=== PATIENT | female | born 1960 | race Caucasian/White ===

== ENCOUNTER 2021-08-27 18:42 | Inpatient (IN) | payer SELFPAY ==
[~2021-08-27] VITALS: Ht 165.1 cm; Wt 68.0 kg
[~2021-08-27 18:42] MED LIST: AMIT25 PO; BUPR100ER PO; CITA20 PO; CLON.1 PO; CLON.2 PO; ESCI10 PO; HYDACE5 PO; IBUP800 PO; KETO10 PO; MEDICAL MARIJUANA; METF500 PO; NAPR500 PO; NIAC500ER PO; NITR100CA PO; OXYACE5T PO; OXYC10ER PO; OXYC5 PO; STOMUL PO; TRAM50 PO; TRAZ50 PO; TRAZODONE HCL; VENL75 PO
[2021-08-27 19:19] LABS: BASOPHILS ABSOLUTE AUTO 0.06 K/mm3 (0.00-0.23); BASOPHILS PERCENT AUTO 0 % (0-2); EOSINOPHILS PERCENT AUTO 0 % (0-6); Hemoglobin 14.4 g/dL (11.5-16.0); IMMATURE GRAN PERCENT AUTO 1 % (0-1); LYMPHOCYTES ABSOLUTE AUTO 0.77 K/mm3 (0.84-5.20); LYMPHOCYTES PERCENT AUTO 4 % (21-46); MONOCYTES ABSOLUTE AUTO 1.73 K/mm3 (0.16-1.47); MONOCYTES PERCENT AUTO 9 % (4-13); Mean Corpuscular HGB 30.4 pg (26.0-34.0); Mean Corpuscular HGB Conc 32.7 g/dL (31.5-36.5); Mean Corpuscular Volume 93 fL (80-100); Mean Platelet Volume 8.9 fL (9.1-12.4); NEUTROPHILS ABSOLUTE AUTO 17.58 K/mm3 (1.96-9.15); NEUTROPHILS PERCENT AUTO 87 % (41-73); Platelet Count 292 K/mm3 (150-400); RDW Coefficient Variation 13.6 % (11.7-14.2); RDW Standard Deviation 46.6 fL (35.1-46.3); Red Blood Cell Count 4.74 M/mm3 (3.80-5.20); White Blood Cell Count 20.24 K/mm3 (4.00-11.30)
[2021-08-27 19:29] LABS: Source, Urine Straight Cath
[2021-08-27 19:31] LABS: Appearance, Urine Clear (Clear); Bilirubin, Urine Neg (Neg); Blood, Urine 4+ (Neg); Color, Urine Yellow (P-Yellow); Glucose Qualitative, Urine 1+ (Neg); Ketones, Urine 2+ (Neg); Leukocyte Esterase, Urine Neg (Neg); Nitrite, Urine Neg (Neg); Protein, Urine 2+ (Neg); Specific Gravity, Urine 1.025 (1.003-1.022); Urobilinogen, Urine NORM (Normal)
[2021-08-27 19:42] LABS: U Amphetamine Screen Not Detected; U Barbituate Screen Not Detected; U Benzodiazapine Screen Not Detected; U Buprenorphine Screen Not Detected; U Cannabinoids Screen DETECTED; U Cocaine Screen Not Detected; U Methadone Screen Not Detected; U Methamphetamine Screen Not Detected; U Opiates Screen Not Detected; U Oxycodone Screen Not Detected; U Phencyclidine Screen Not Detected; U Propoxyphene Screen Not Detected
[2021-08-27 19:44] LABS: Hyaline Casts 0-2 /lpf (0-2)
[2021-08-27 19:45] LABS: Beta HCG, Quantitative, Serum 2 mIU/mL (0-3); Creatine Kinase MB 45.8 ng/mL (0.0-3.6); Ethanol (Alcohol), Blood, Med <3 mg/dL
[2021-08-27 19:45] LABS: Renal Tubular Epi Cast 0-2 /lpf (0)
[2021-08-27 19:46] LABS: Bacteria Few /hpf; Squamous Epithelial Cells Few /hpf (Few); White Blood Cells, Urine 0-2 /hpf (0-5)
[2021-08-27 20:08] LABS: Alanine Aminotransfer (ALT/SGP 107 U/L (12-78); Albumin, Blood 3.3 g/dL (3.4-5.0); Albumin/Globulin Ratio 0.7 (0.8-1.8); Alk Phos 106 U/L (50-136); Anion Gap 9 mmol/L (6-16); Aspartate Aminotrans (AST/SGOT 97 U/L (12-37); Bilirubin, Total 0.5 mg/dL (0.1-1.0); Blood Urea Nitrogen 15 mg/dL (8-24); Bun/Creatinine Ratio 24.2 (12.0-20.0); CO2, Blood 19 mmol/L (21-32); CPK Creatine Kinase 1421 U/L (26-193); Calcium, Blood 9.1 mg/dL (8.5-10.1); Chloride, Blood 113 mmol/L (98-108); Creatine Kinase MB Index 3.2 (0.0-4.0); Creatinine, Blood 0.62 mg/dL (0.40-1.00); Globulin, Blood 4.7 g/dL (2.2-4.0); Glomerular Filtration Rate 102 (60-); Glucose, Blood 121 mg/dL (70-99); Potassium, Blood 4.3 mmol/L (3.5-5.5); Sodium, Blood 141 mmol/L (136-145)
[2021-08-27 20:11] LABS: International Normalized Ratio 1.04; Prothrombin Time Results 10.9 Sec (9.7-11.5)
[2021-08-28 04:18] LABS: BASOPHILS ABSOLUTE AUTO 0.04 K/mm3 (0.00-0.23); BASOPHILS PERCENT AUTO 0 % (0-2); EOSINOPHILS ABSOLUTE AUTO 0.01 K/mm3 (0.00-0.68); EOSINOPHILS PERCENT AUTO 0 % (0-6); Hematocrit 42.7 % (33.0-51.0); Hemoglobin 13.8 g/dL (11.5-16.0); IMMATURE GRAN ABSOLUTE AUTO 0.04 K/mm3 (0.00-0.10); IMMATURE GRAN PERCENT AUTO 0 % (0-1); LYMPHOCYTES ABSOLUTE AUTO 2.16 K/mm3 (0.84-5.20); LYMPHOCYTES PERCENT AUTO 16 % (21-46); MONOCYTES ABSOLUTE AUTO 1.19 K/mm3 (0.16-1.47); MONOCYTES PERCENT AUTO 9 % (4-13); Mean Corpuscular HGB 30.5 pg (26.0-34.0); Mean Corpuscular HGB Conc 32.3 g/dL (31.5-36.5); Mean Corpuscular Volume 94 fL (80-100); Mean Platelet Volume 8.8 fL (9.1-12.4); NEUTROPHILS ABSOLUTE AUTO 9.89 K/mm3 (1.96-9.15); NEUTROPHILS PERCENT AUTO 74 % (41-73); Platelet Count 224 K/mm3 (150-400); RDW Coefficient Variation 13.8 % (11.7-14.2); RDW Standard Deviation 48.3 fL (35.1-46.3); Red Blood Cell Count 4.53 M/mm3 (3.80-5.20); White Blood Cell Count 13.33 K/mm3 (4.00-11.30)
[2021-08-28 04:37] LABS: Albumin/Globulin Ratio 0.7 (0.8-1.8); Bilirubin, Total 0.6 mg/dL (0.1-1.0); Bun/Creatinine Ratio 24.1 (12.0-20.0); Calcium, Blood 8.2 mg/dL (8.5-10.1); Creatinine, Blood 0.58 mg/dL (0.40-1.00); Globulin, Blood 4.1 g/dL (2.2-4.0); Potassium, Blood 4.2 mmol/L (3.5-5.5); Total Protein, Blood 7.1 g/dL (6.4-8.2)
--- NOTE | 2021-08-28 06:16 | NUR ---
Overnight pt in restraints (soft wrist bilat), not following commands, VSS, room air to 2L intermittent, IV dilaudid appears effective, will monitor ABDOUL Obando
--- NOTE | 2021-08-28 11:56 | NUR ---
Am note Pt resting in bed, wakes to verbal stimuli, oriented to name only, unable to answer questions appropriately. Pt states shes at home in bed, its Apr 2021. Pt nonsensical when asked what happened to bring her in, pt states she fell at home, point to corner of room, states algerbra made her fall. Pt aggitated at time, pulling at restraints, and melecio vest, removing multiple times, PIV removed. Ls coarse t/o dim bases, spo2 >90% on ra, titrated from 1L o2 via nc this am. Tele sr/st, bp soft but stable. Pt abd soft, tender on plapation. Brusing noted t/o body, including pt face. Other vss. Will continue to monitor.
--- NOTE | 2021-08-28 18:38 | NUR ---
Shift Summary Pt appears to be sleeping intermittently t/o shift. Alert at times, calm and cooperative late morning and afternoon. Speech is nonsensicle at times. Pt able to get out of restraints multiple times pulling out piv's and attempts to get out of bed, nonviolent bilateral wrist tat placed this afternoon. Pt report pain with movement, denies chest pain, sob, nausea and dizziness when asked. Trop elevated, ekg and echo completed this afternoon, notified MD. Finnegan. Pt friend Ziggy at bedside this afternoon, states this is her baseline for at least the last month or so. Dr Kim at bedside this evening, discuss possible st elevation, plans to manage medically at this time. Will continue to monitor.
[2021-08-29 04:38] LABS: BASOPHILS ABSOLUTE AUTO 0.04 K/mm3 (0.00-0.23); BASOPHILS PERCENT AUTO 0 % (0-2); EOSINOPHILS ABSOLUTE AUTO 0.02 K/mm3 (0.00-0.68); EOSINOPHILS PERCENT AUTO 0 % (0-6); Hematocrit 37.4 % (33.0-51.0); IMMATURE GRAN ABSOLUTE AUTO 0.03 K/mm3 (0.00-0.10); IMMATURE GRAN PERCENT AUTO 0 % (0-1); LYMPHOCYTES ABSOLUTE AUTO 2.39 K/mm3 (0.84-5.20); LYMPHOCYTES PERCENT AUTO 22 % (21-46); MONOCYTES ABSOLUTE AUTO 0.86 K/mm3 (0.16-1.47); MONOCYTES PERCENT AUTO 8 % (4-13); Mean Corpuscular HGB 30.2 pg (26.0-34.0); Mean Corpuscular HGB Conc 32.1 g/dL (31.5-36.5); Mean Corpuscular Volume 94 fL (80-100); Mean Platelet Volume 9.4 fL (9.1-12.4); NEUTROPHILS ABSOLUTE AUTO 7.33 K/mm3 (1.96-9.15); NEUTROPHILS PERCENT AUTO 69 % (41-73); Platelet Count 203 K/mm3 (150-400); RDW Coefficient Variation 14.2 % (11.7-14.2); RDW Standard Deviation 49.3 fL (35.1-46.3); Red Blood Cell Count 3.98 M/mm3 (3.80-5.20); White Blood Cell Count 10.67 K/mm3 (4.00-11.30)
[2021-08-29 05:13] LABS: Albumin, Blood 2.7 g/dL (3.4-5.0); Albumin/Globulin Ratio 0.7 (0.8-1.8); Bilirubin, Total 1.2 mg/dL (0.1-1.0); Bun/Creatinine Ratio 30.7 (12.0-20.0); Calcium, Blood 8.3 mg/dL (8.5-10.1); Creatinine, Blood 0.59 mg/dL (0.40-1.00); Globulin, Blood 3.9 g/dL (2.2-4.0); Potassium, Blood 3.9 mmol/L (3.5-5.5); Total Protein, Blood 6.6 g/dL (6.4-8.2)
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
--- NOTE | 2021-08-29 10:03 | NUR ---
AM NOTE PATIENT IS PLEASANT, COOPERATIVE, BUT MINIMALLY ALERT AND ORIENTED, CAN NAME DATE, TIME, EVENT, BUT IS CONFUSED FOR THE MOST PART. SPEAKS IN TANGENT AT TIMES. TELE NSR 90S PACED, SPO2>95% ON RA, VSS. PATIENT HAS A JAMIE OVER HER CHEST, NO S/SX OF BRUISING, TENDERNESS, SCRATCHES, ETC. PLAN FOR MRI TODAY. PATIENT DENIES CP/PRESSURE, SOB, NAUSEA, NUMBNESS/TINGLING AT THIS TIME.
[2021-08-29 12:16] LABS: Creatine Kinase MB 17.1 ng/mL (0.0-3.6); Creatine Kinase MB Index 0.8 (0.0-4.0)
--- NOTE | 2021-08-29 13:43 | NUR ---
Plans for MRI discussed this am, MRI screening form completed with pt and daughter Gisella over the phone. New orders per Dr Kim for Ativan 1mg iv once for MRI, administered per orders, [facility] emg technician called pt unable to stay still, notified Dr Brandon of previous adminstration and pt behaviour, new order for ativan iv 1mg now. Administered per orders, pt still unable to keep still for MRI. Notified Dr Krishnan and Dr Kim. Will continue to monitor.
--- NOTE | 2021-08-29 18:56 | NUR ---
SHIFT SUMMARY PATIENT REMAINED COOPERATIVE WITH CARE AND PLEASANT. PATIENT DID STAY CONFUSED WITH TANGENTAL THOUGHT PROCESS. DETECTIVES AND DAUGHTER AT BEDISDE TODAY. PATIENT CAME BACK FROM HARMONIC ANALYST WITH A RIGHT RADIAL ACCESS. THE ACCESS SITE IS INTCATT, TR BAND PATENT, NO BRUISING, NO SWELLING, NO REDNESS, NO HEMATOMA PRESENT. TELE SR 90S. SPO2>95% RA. VSS. WILL CONTINUE TO MONITOR UNTIL REPORT GIVEN TO THE ONCOMING SHIFT.
--- NOTE | 2021-08-29 19:49 | NUR ---
I have reviewed the nursing students documentation and am in agreement. Pt alert, oriented to person and place, knows year. Pt cooperative and pleasant with care, nonsensical at times. Restraints removed this am. Pt reports all over pain. Pt denies chest pain, sob, nausea, dizziness and numb/tingling. Attempted mri, see previosu note, no additional plans for imaging noted. Pt to lab technician this afternoon, right radial site, tr band in place, slight shadow noted and dried blood noted under tr band; no active bleeding or hematoma noted. Vss. No other acute changes noted. Report given to oncoming rn.
[2021-08-30 07:51] LABS: Hematocrit 35.6 % (33.0-51.0); Hemoglobin 11.4 g/dL (11.5-16.0); Mean Corpuscular HGB 30.5 pg (26.0-34.0); Mean Corpuscular Volume 95 fL (80-100); Platelet Count 214 K/mm3 (150-400); RDW Coefficient Variation 14.1 % (11.7-14.2); RDW Standard Deviation 49.1 fL (35.1-46.3); Red Blood Cell Count 3.74 M/mm3 (3.80-5.20); White Blood Cell Count 7.26 K/mm3 (4.00-11.30)
[2021-08-30 08:02] LABS: Anion Gap 8 mmol/L (6-16); Blood Urea Nitrogen 18 mg/dL (8-24); CHOL/HDL RATIO 4.6; CO2, Blood 22 mmol/L (21-32); Chloride, Blood 116 mmol/L (98-108); Cholesterol 116 mg/dL (50-200); Creatinine, Blood 0.53 mg/dL (0.40-1.00); Glomerular Filtration Rate 106 (60-); Glucose, Blood 66 mg/dL (70-99); HDL Cholesterol 25 mg/dL (>39); LDL/HDL RATIO 2.8; Low Density Lipoprotein Chol 70 mg/dL (0-110); Potassium, Blood 3.8 mmol/L (3.5-5.5); Sodium, Blood 146 mmol/L (136-145); Triglycerides 106 mg/dL (30-160); Very Low Density Lipoprot Chol 21 mg/dL (6-32)
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
--- NOTE | 2021-08-30 15:08 | NUR ---
REPORT TO MEDICAL RN THIS RN GAVE REPORT TO SAPPHIRE RN ON MEDICAL FLOOR. PATIENT BELONGINGS ALL GATHERED AND WITH PATIENT. PATIENT IN NO DISTRESS AND IS AWARE OF MOVING ROOM TO MEDICAL FLOOR. THERE HAVE BEEN NO ACUTE CHANGES THIS SHIFT. PER PHYSICAL THERAPY PATIENT CAN BE INDEPENDENT IN THE ROOM.
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
[2021-08-31 08:44] LABS: Bun/Creatinine Ratio 29.1 (12.0-20.0); Creatinine, Blood 0.52 mg/dL (0.40-1.00); Potassium, Blood 3.4 mmol/L (3.5-5.5)
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
--- NOTE | 2021-08-31 16:36 | NUR ---
DR. REYES IS HERE NOW ASSESSING THE PATIENT. DISCHARGE PLANNING IS UNDERWAY BUT PSYCH ASSESSMENT NEEDS TO BE COMPLETED PRIOR TO DC. TODAY, THE PATIENT WAS IN A GOOD MOOD, ALTHOUGH PARANOID AND TALKING ABOUT NON-REALITY IDEAS. HER SKIN HAS SCATTERED BRUISING, WHICH SHE SAYS IS FROM FALLING DOWN. SHE IS UP INDEPENDENTLY, PT ASSESSED HER SUCH TODAY. HER MAIN COMPLAINT IS HER KNEE BEING PAINFUL WHEN SHE GETS UP TO MOVE AROUND.
--- NOTE | 2021-08-31 17:46 | NUR ---
PATIENTS 2100 DOSE OF SEROQUEL WAS RAISED TO 100MG AFTER THE PSYCH PROVIDER MET WITH HER TODAY.
--- NOTE | 2021-09-01 04:33 | NUR ---
PT HAVING LESS PARANOID CONVERSATION AT START OF SHIFT. SLEPT THROUGH THE NIGHT, VSS.
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
--- NOTE | 2021-09-01 16:14 | NUR ---
DR. MANSFIELD WAS HERE TO DO A FOLLOW UP FROM THE PSYCH EVAL HE COMPLETED YESTERDAY. HE BELIEVES SHE IS IMPROVING. HE WILL CHECK ON HER NEXT WEEK. THERE ARE NO MEDICAL CONCERNS TO REPORT.
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
--- NOTE | 2021-09-02 04:25 | NUR ---
SHIFT SUMMARY 61 YR F ADMITTED ON 08/27/21. FULL CODE. NO ACUTE CHANGES THIS SHIFT. PT IS PLEASANT AND COOPERATIVE BUT ALSO SEEMS CONFUSED. SHE WAS FRIENDLY AND CHATTED ALOT BUT ALOT OF THE THINGS SHE SAID DID NOT MAKE SENSE. SHE WATCHED TV FOR SEVERAL HOURS THEN SLEPT FOR THE REST OF THE NIGHT.
--- NOTE | 2021-09-02 15:55 | NUR ---
SHIFT SUMMARY PT ALERT, CONFUSED AT TIMES. PT IS INDEPENDENT IN BED, STAND BY TO THE BATHROOM. PT IS CONTINENT. PT IS AWAITING PLACEMENT, SHE IS SAID TO BE PARANOID, DELUSIONAL, AND EPISODES OF JOEY. SHE HAS BEEN PLEASANT TODAY, OBEYS COMMANDS AND FOLLOWS DIRECTIONS. SHE WAS TRANSFERRED FROM THE ICU FOR RHABDOMYOLYSIS. SHE HAS BRUSING T/O THE BODY. SHE DOES HAVE A HISTORY OF FALLS. SHE IS A FULL CODE. SHE HAS BEEN IN BED, WATCHING TELEVISION ALL DAY AND PLAYING WORD SEARCH.
--- NOTE | 2021-09-02 16:35 | NUR ---
I AM IN AGGREEMENT WITH THE CHARTING BY COMMUNICATION LECTURER BRENDAN.
--- NOTE | 2021-09-03 02:24 | NUR ---
SHIFT SUMMARY 61 YR F ADMITTED ON 08/27/21. FULL CODE. PT SEEMS MUCH MORE LUCID TODAY THAN YESTERDAY. HER SPEECH MAKES SENSE AND IS APPROPRIATE IN NATURE. SHE IS PLEASANT AND COOPERATIVE AND WATCHED TV FOR A FEW HOURS THEN WENT TO BED AND S;EPT FOR THE REST OF THE NIGHT.
--- NOTE | 2021-09-03 15:05 | NUR ---
I HAVE READ AND AGREE THE DOCUMENTATION FROM BRENDAN STUDENT NURSE AND AM IN AGREEMENT WITH HER CHARTING.
--- NOTE | 2021-09-03 17:10 | NUR ---
SHIFT SUMMARY PT IS A FULL CODE AND INDEPENDENT, SHE TAKES MEDS WHOLE WITH WATER. THERE ARE NO ACUTE CHANGES AT THIS TIME. PT HAS BEEN COOPERATIVE AND FOLLOWS DIRECTIONS IN A PLEASANT MANNER. SHE HAS BEEN IN BED AND WATCHING TELEVISION ALL DAY. HER PARTNER VISITED HER TODAY FOR A SHORT TIME. SHE HAS A POWER GLIDE IN HER RIGHT ARM. SHE HAS EXTENSIVE MENTAL HEALTH HISTORY. WILL CONTINUE TO MONITOR AND ASSESS UNTIL NOC SHIFT ARRIVES.
--- NOTE | 2021-09-04 05:01 | NUR ---
SHIFT SUMMARY NOC: PT HAS BEEN COOPERATIVE WITH CARE, INDEPENDENT IN ROOM. PT SLEPT ALL NIGHT. NO ADVERSE EVENTS.
[2021-09-04] MEDS ORDERED: ASPI81CH PO (14:42)
[2021-09-04] MEDS ORDERED: ATOR20 PO (14:43)
[2021-09-04] MEDS ORDERED: LOSA25 PO (14:44)
[2021-09-04] MEDS ORDERED: METO25ER PO (14:44)
--- NOTE | 2021-09-04 16:25 | NUR ---
DC SUMMARY PT AxOx4. PLEASANT AND COOPERATIVE WITH CARE. PT DISPLAYS SOME PARANOID THOUGHTS AND NONSENSICAL SPEECH. PT DISCHARGING TO HOME TODAY WITH SIGNIFICANT OTHER. PT AND SIGNIFICANT OTHER GIVEN DC INSTRUCTIONS INCLUDING DC MEDICATIONS, FOLLOW UP APPOINTMENTS AND PATIENT EDUCATION. PT AND S/O VERBALIZE UNDERSTANDING AND DENY ANY FURTHER QUESTIONS AT THIS TIME. VITALS REVIEWED. PSYCH DR YU TODAY, CLEARED FOR DISCHARGE. PT SAFELY ESCORTED OUT VIA WC WITH METAL ROOM DENTAL TECHNICIAN AND S/O.
== END 2021-09-04 16:16 | DRG 964 ==
LOC: ER 18:42 → MEDS 23:29 → PCU 23:29 → MEDS 08-30 15:23 → ENPENDDIS 09-04 15:32 → MEDS 09-04 16:16
PROVIDERS: Emergency Medicine; Internal Medicine Cardiovascular Disease; Student in an Organized Health Care Education/Training Program; ADMIT Internal Medicine
PROC: 4A023N7 Measurement of Cardiac Sampling and Pressure, Left Heart, Percutaneous Approach (ICD-10-PCS; principal; 2021-08-29)
PROC: B2151ZZ Fluoroscopy of Left Heart using Low Osmolar Contrast (ICD-10-PCS; 2021-08-29)
DX: S06.9X0A Unspecified intracranial injury without loss of consciousness, initial encounter (principal); I51.81 Takotsubo syndrome; T79.6XXA Traumatic ischemia of muscle, initial encounter; M84.48XA Pathological fracture, other site, initial encounter for fracture; R40.2342 Coma scale, best motor response, flexion withdrawal, at arrival to emergency department; G89.29 Other chronic pain; M54.9 Dorsalgia, unspecified; R40.2142 Coma scale, eyes open, spontaneous, at arrival to emergency department; R40.2232 Coma scale, best verbal response, inappropriate words, at arrival to emergency department; M79.7 Fibromyalgia; M54.2 Cervicalgia; F32.A Depression, unspecified; I10 Essential (primary) hypertension; E78.5 Hyperlipidemia, unspecified; R73.9 Hyperglycemia, unspecified; E86.0 Dehydration; E78.6 Lipoprotein deficiency; F25.0 Schizoaffective disorder, bipolar type; Z88.0 Allergy status to penicillin; W18.39XA Other fall on same level, initial encounter
CPT/HCPCS: 36415; 70450; 71260; 72125; 74177; 80048; 80053; 80061; 81001; 82140; 82550; 82553; 82947; 83690; 83880; 84443; 84484; 84702; 85025; 85027; 85610; 93005; 93010; 93306; 93458; 96365-59; 96366; 96372-59; 96375-59; 96376-59; 97110; 97116; 97129; 97162; 97165; 97530; 97535; 99285-25; A9270; C1751; C1769; C1894; C8929; G0480; J1170; J1644; J1650; J1790; J2060; J2405; J3411; J3475; J7030; J7040; J7042; L0160; Q9957; Q9967

== ENCOUNTER 2022-06-05 14:48 | Observation (INO) | payer MEDICARE ==
[~2022-06-05] VITALS: Ht 162.6 cm; Wt 68.0 kg
[~2022-06-05 14:48] MED LIST changes: +ASPI81CH PO; +ATOR20 PO; +LOSA25 PO; +METO25ER PO
[2022-06-05 16:17] LABS: BASOPHILS ABSOLUTE AUTO 0.06 K/mm3 (0.00-0.23); BASOPHILS PERCENT AUTO 1 % (0-2); EOSINOPHILS ABSOLUTE AUTO 0.04 K/mm3 (0.00-0.68); EOSINOPHILS PERCENT AUTO 1 % (0-6); Hemoglobin 14.6 g/dL (11.5-16.0); IMMATURE GRAN ABSOLUTE AUTO 0.02 K/mm3 (0.00-0.10); IMMATURE GRAN PERCENT AUTO 0 % (0-1); LYMPHOCYTES ABSOLUTE AUTO 1.35 K/mm3 (0.84-5.20); LYMPHOCYTES PERCENT AUTO 19 % (21-46); MONOCYTES ABSOLUTE AUTO 0.62 K/mm3 (0.16-1.47); MONOCYTES PERCENT AUTO 9 % (4-13); Mean Corpuscular HGB 31.3 pg (26.0-34.0); Mean Corpuscular HGB Conc 33.2 g/dL (31.5-36.5); Mean Corpuscular Volume 94 fL (80-100); Mean Platelet Volume 9.1 fL (9.1-12.4); NEUTROPHILS ABSOLUTE AUTO 5.14 K/mm3 (1.96-9.15); NEUTROPHILS PERCENT AUTO 71 % (41-73); Platelet Count 316 K/mm3 (150-400); RDW Coefficient Variation 14.4 % (11.7-14.2); RDW Standard Deviation 49.5 fL (35.1-46.3); Red Blood Cell Count 4.66 M/mm3 (3.80-5.20); White Blood Cell Count 7.23 K/mm3 (4.00-11.30)
[2022-06-05 16:39] LABS: Ethanol (Alcohol), Blood, Med 3 mg/dL; Salicylate 3.9 mg/dL (2.8-20.0)
[2022-06-05 16:42] LABS: Acetaminophen, Random <2.0 ug/mL (10.0-30.0); Alanine Aminotransfer (ALT/SGP 66 U/L (12-78); Albumin, Blood 3.7 g/dL (3.4-5.0); Albumin/Globulin Ratio 0.8 (0.8-1.8); Alk Phos 77 U/L (50-136); Anion Gap 2 mmol/L (6-16); Aspartate Aminotrans (AST/SGOT 44 U/L (12-37); Bilirubin, Total 0.3 mg/dL (0.1-1.0); Blood Urea Nitrogen 12 mg/dL (8-24); Bun/Creatinine Ratio 24.1 (12.0-20.0); CO2, Blood 25 mmol/L (21-32); Calcium, Blood 8.9 mg/dL (8.5-10.1); Chloride, Blood 111 mmol/L (98-108); Globulin, Blood 4.7 g/dL (2.2-4.0); Glomerular Filtration Rate 107 (60-); Glucose, Blood 122 mg/dL (70-99); Potassium, Blood 4.4 mmol/L (3.5-5.5); Sodium, Blood 138 mmol/L (136-145); Total Protein, Blood 8.4 g/dL (6.4-8.2)
[2022-06-05 18:28] LABS: Source, Urine Clean Catch
[2022-06-05 18:32] LABS: Influenza A, PCR NEGATIVE (NEGATIVE); Influenza B, PCR NEGATIVE (NEGATIVE); Resp Syncytial Virus, PCR NEGATIVE (NEGATIVE); SARS-Cov-2 (COVID-19) PCR, MMC NEGATIVE (NEGATIVE)
[2022-06-05 18:35] LABS: Appearance, Urine Clear (Clear); Bilirubin, Urine Neg (Neg); Blood, Urine Neg (Neg); Color, Urine Yellow (P-Yellow); Glucose Qualitative, Urine Neg (Neg); Ketones, Urine 1+ (Neg); Leukocyte Esterase, Urine Neg (Neg); Nitrite, Urine Neg (Neg); Protein, Urine 1+ (Neg); Urobilinogen, Urine 1+ (Normal)
[2022-06-05 18:45] LABS: U Amphetamine Screen Not Detected; U Barbituate Screen Not Detected; U Benzodiazapine Screen Not Detected; U Buprenorphine Screen Not Detected; U Cannabinoids Screen DETECTED; U Cocaine Screen Not Detected; U Methadone Screen Not Detected; U Methamphetamine Screen Not Detected; U Opiates Screen Not Detected; U Oxycodone Screen Not Detected; U Phencyclidine Screen Not Detected; U Propoxyphene Screen Not Detected
== END 2022-06-06 21:20 ==
LOC: ER 14:48 → EOR 14:49
PROVIDERS: Emergency Medicine; Student in an Organized Health Care Education/Training Program; ADMIT Student in an Organized Health Care Education/Training Program
DX: F25.0 Schizoaffective disorder, bipolar type (principal); I10 Essential (primary) hypertension; E78.5 Hyperlipidemia, unspecified; Z20.822 Contact with and (suspected) exposure to COVID-19; F41.9 Anxiety disorder, unspecified
CPT/HCPCS: 0241U; 80053; 81025; 85025; 93005; 93010; 99285-25; A9270; G0378; G0480; Q3014

== ENCOUNTER 2022-06-22 09:53 | Inpatient (IN) | payer MEDICARE, MEDICAID ==
[~2022-06-22] VITALS: Ht 170.2 cm; Wt 70.6 kg
[2022-06-22 10:33] LABS: BASOPHILS ABSOLUTE AUTO 0.04 K/mm3 (0.00-0.23); BASOPHILS PERCENT AUTO 0 % (0-2); EOSINOPHILS ABSOLUTE AUTO 0.02 K/mm3 (0.00-0.68); EOSINOPHILS PERCENT AUTO 0 % (0-6); Hematocrit 42.7 % (33.0-51.0); Hemoglobin 14.1 g/dL (11.5-16.0); IMMATURE GRAN ABSOLUTE AUTO 0.29 K/mm3 (0.00-0.10); IMMATURE GRAN PERCENT AUTO 2 % (0-1); LYMPHOCYTES ABSOLUTE AUTO 0.78 K/mm3 (0.84-5.20); LYMPHOCYTES PERCENT AUTO 4 % (21-46); MONOCYTES ABSOLUTE AUTO 2.17 K/mm3 (0.16-1.47); MONOCYTES PERCENT AUTO 11 % (4-13); Mean Corpuscular HGB 30.6 pg (26.0-34.0); Mean Corpuscular Volume 93 fL (80-100); Mean Platelet Volume 9.9 fL (9.1-12.4); NEUTROPHILS ABSOLUTE AUTO 16.34 K/mm3 (1.96-9.15); NEUTROPHILS PERCENT AUTO 83 % (41-73); Platelet Count 290 K/mm3 (150-400); RDW Coefficient Variation 14.1 % (11.7-14.2); RDW Standard Deviation 48.1 fL (35.1-46.3); Red Blood Cell Count 4.61 M/mm3 (3.80-5.20); White Blood Cell Count 19.64 K/mm3 (4.00-11.30)
[2022-06-22 11:05] LABS: Albumin, Blood 3.2 g/dL (3.4-5.0); Albumin/Globulin Ratio 0.6 (0.8-1.8); Bilirubin, Total 0.3 mg/dL (0.1-1.0); Bun/Creatinine Ratio 16.7 (12.0-20.0); Calcium, Blood 8.4 mg/dL (8.5-10.1); Creatinine, Blood 0.66 mg/dL (0.40-1.00); Globulin, Blood 5.1 g/dL (2.2-4.0); Potassium, Blood 3.6 mmol/L (3.5-5.5); Total Protein, Blood 8.3 g/dL (6.4-8.2)
[2022-06-22 12:02] LABS: Source, Urine Straight Cath
[2022-06-22 12:21] LABS: Appearance, Urine Clear (Clear); Bilirubin, Urine Neg (Neg); Blood, Urine 4+ (Neg); Color, Urine Yellow (P-Yellow); Glucose Qualitative, Urine Neg (Neg); Ketones, Urine Neg (Neg); Leukocyte Esterase, Urine Neg (Neg); Nitrite, Urine Neg (Neg); Protein, Urine Neg (Neg); Specific Gravity, Urine 1.015 (1.003-1.022); Urobilinogen, Urine NORM (Normal)
[2022-06-22 12:37] LABS: White Blood Cells, Urine Not Seen /hpf (0-5)
[2022-06-22 12:38] LABS: Bacteria Not Seen /hpf; Squamous Epithelial Cells Few /hpf (Few)
[2022-06-22 12:52] LABS: U Amphetamine Screen Not Detected; U Barbituate Screen Not Detected; U Benzodiazapine Screen Not Detected; U Buprenorphine Screen Not Detected; U Cannabinoids Screen DETECTED; U Cocaine Screen Not Detected; U Methadone Screen Not Detected; U Methamphetamine Screen Not Detected; U Opiates Screen Not Detected; U Oxycodone Screen Not Detected; U Phencyclidine Screen Not Detected; U Propoxyphene Screen Not Detected
[2022-06-22 14:09] LABS: RBC Count, CSF 0 /mm3 (0-0); WBC Count, CSF 1 /mm3 (0-5)
[2022-06-22 14:20] LABS: RBC Count, CSF 0 /mm3 (0-0); WBC Count, CSF 2 /mm3 (0-5)
[2022-06-22 14:44] LABS: Glucose, CSF 109 mg/dL (40-70)
[2022-06-22 14:57] LABS: Appearance, CSF Clear (Clear); Color, CSF No Color (No Color)
[2022-06-22 15:00] LABS: Appearance, CSF Clear (Clear); Color, CSF No Color (No Color)
[2022-06-22 16:09] LABS: Escherichia Coli K1 Not Detected (NOT DETECT); Haemophilus Influenza Not Detected (NOT DETECT)
[2022-06-22 16:10] LABS: Cryptococcus Neoformans/Gattii Not Detected (NOT DETECT); Enterovirus Not Detected (NOT DETECT); Herpes Simplex Virus 1 Not Detected (NOT DETECT); Herpes Simplex Virus 2 Not Detected (NOT DETECT); Human Herpesvirus 6 Not Detected (NOT DETECT); Human Parechovirus Not Detected (NOT DETECT); Listeria Monocytogenes Not Detected (NOT DETECT); Neisseria Meningitidis Not Detected (NOT DETECT); Streptococcus Agalactiae Not Detected (NOT DETECT); Streptococcus Pneumoniae Not Detected (NOT DETECT); Varicella Zoster Virus Not Detected (NOT DETECT)
[2022-06-23 05:53] LABS: BASOPHILS ABSOLUTE AUTO 0.02 K/mm3 (0.00-0.23); BASOPHILS PERCENT AUTO 0 % (0-2); EOSINOPHILS PERCENT AUTO 0 % (0-6); Hematocrit 40.1 % (33.0-51.0); Hemoglobin 13.3 g/dL (11.5-16.0); IMMATURE GRAN ABSOLUTE AUTO 0.05 K/mm3 (0.00-0.10); IMMATURE GRAN PERCENT AUTO 0 % (0-1); LYMPHOCYTES PERCENT AUTO 12 % (21-46); MONOCYTES ABSOLUTE AUTO 0.94 K/mm3 (0.16-1.47); MONOCYTES PERCENT AUTO 7 % (4-13); Mean Corpuscular HGB 30.6 pg (26.0-34.0); Mean Corpuscular HGB Conc 33.2 g/dL (31.5-36.5); Mean Corpuscular Volume 92 fL (80-100); Mean Platelet Volume 9.9 fL (9.1-12.4); NEUTROPHILS ABSOLUTE AUTO 10.57 K/mm3 (1.96-9.15); NEUTROPHILS PERCENT AUTO 81 % (41-73); Platelet Count 261 K/mm3 (150-400); RDW Coefficient Variation 14.1 % (11.7-14.2); RDW Standard Deviation 47.8 fL (35.1-46.3); Red Blood Cell Count 4.34 M/mm3 (3.80-5.20); White Blood Cell Count 13.08 K/mm3 (4.00-11.30)
[2022-06-23 06:33] LABS: Magnesium, Blood 2.4 mg/dL (1.6-2.4)
[2022-06-23 06:34] LABS: Albumin/Globulin Ratio 0.7 (0.8-1.8); Bilirubin, Total 0.9 mg/dL (0.1-1.0); Calcium, Blood 8.1 mg/dL (8.5-10.1); Creatinine, Blood 0.52 mg/dL (0.40-1.00); Globulin, Blood 4.6 g/dL (2.2-4.0); Potassium, Blood 4.5 mmol/L (3.5-5.5); Total Protein, Blood 7.6 g/dL (6.4-8.2)
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
--- NOTE | 2022-06-23 18:41 | NUR ---
END OF SHIFT SUMMARY: PATIENT REPORTED PAIN INTIALLY THIS MORNING, BUT DENIED IT AFTER SLEEPING. PATIENT DEMONSTRATED IMPROVED NEUROLOGICAL STATUS. BY THE END OF THE SHIFT, PATIENT WAS ABLE TO ANSWER QUESTIONS APPROPRIATELY AND FEED HERSELF. PATIENT REFUSED TO GET OUT OF THE BED THIS AFTERNOON AND EVENING. PATIENT IS STRONG ACROSS EXTREMITIES. PATIENT ABLE TO LIFT HIPS AND REPOSITION INDEPENDENTLY IN THE BED. PATIENT DENIES USE OF ASSISTIVE DEVICE AT HOME FOR AMBULATION. PATIENT IS CONTINENT. PATIENT HAS VERY DARK YELLOW URINE. PATIENT HAS A NON PRODUCTIVE COUGH. PATIENT REPORTS THAT SHE SMOKES MARIJUANA AT HOME FOR PAIN CONTROL. PATIENT HAS ROUND BRUISES ON HER BACK, OVAL BRUISES THAT CIRCUMVENT HER FOREARMS AND UPPER ARMS. PATIENT HAS BRUISES AND SOME OPENINGS ON HER LEGS/ANKLES. PATIENT HAS BRUISING AROUND HER RIGHT EYE, SWELLING OF THE RIGHT LOWER SIDE OF BOTTOM LIP, AND DAMAGE TO HER TEETH. THE PATIENT REPORTS THAT SHE FELL DOWN THE STAIRS. HER VISITOR SAMMI, NEIGHBOR, AND THE INDIVIDUAL THAT FOUND HER REPORTS THAT HE FOUND HER SITTING IN HER CHAIR IN HER BEDROOM, BOXED IN BY HER BED, THE WALL, AND A STOOL IN FRONT OF HER.
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
--- NOTE | 2022-06-24 18:48 | NUR ---
SHFT SUMMARY PT A&OX3 AND PLEASANT. NO ACUTE CHANGES. PT VERY TALKATIVE. UP TO CHAIR FOR LUNCH. NO C/O PAIN. ATE SMALL AMOUNTS. VSS. BED IN LOWEST POSITION AND CALL LIGHT IN REACH.
[2022-06-25 00:08] LABS: CHLAMYDIA TRACHOMATIS, NAA Negative (Negative)
--- NOTE | 2022-06-25 04:37 | NUR ---
REAL ESTATE LEGAL ASSISTANT SUMMARY NO ACUTE CHANGES. PT A/O3. ALERT AND TALKATIVE DURING INTERACTIONS. PT RESPONDS APPROPRIATELY TO QUESTIOS AND FOLLOWS COMMANDS. PT RAMBLES FREQUENTLY WITH STORIES AND TANGENTS. PLEASANT AND COOPERATIVE. MED FOR PAIN 1X DUIRNG SHIFT. PT REPORTS GENERAL MUSCLE PAIN/ACHE AND HEADACHE IN THE MAPLE PRODUCTS SUPERVISOR. OPEN SKIN ABRASION ON RT ANKLE; MEPILEX CHANGED. RASH/DISCHARGE IN PRINCE IS STILL PRESENT BUT IMPROVING. PT DENIES ITCHING/PAINFUL SENSATION. PT WILL SOMETIMES CALL F/ASSISTANCE BUT USUALLY IMPULSIVE OOB. ALARM SET. PT IS INCREASINGLY STEADY ON HER FEET BUT REMAINS A SBA T/BATHROOM. BRIEF IN PLACE W/SOME EPISODES OF INCONTINENCE.
[2022-06-25 06:07] LABS: Hematocrit 35.4 % (33.0-51.0); Hemoglobin 11.8 g/dL (11.5-16.0); Mean Corpuscular HGB 30.8 pg (26.0-34.0); Mean Corpuscular HGB Conc 33.3 g/dL (31.5-36.5); Mean Corpuscular Volume 92 fL (80-100); Mean Platelet Volume 10.4 fL (9.1-12.4); Platelet Count 247 K/mm3 (150-400); RDW Coefficient Variation 13.9 % (11.7-14.2); RDW Standard Deviation 47.4 fL (35.1-46.3); Red Blood Cell Count 3.83 M/mm3 (3.80-5.20); White Blood Cell Count 7.77 K/mm3 (4.00-11.30)
[2022-06-25 06:28] LABS: CPK Creatine Kinase 894 U/L (26-193)
[2022-06-25 06:29] LABS: Albumin, Blood 2.4 g/dL (3.4-5.0); Anion Gap 2 mmol/L (6-16); Blood Urea Nitrogen 11 mg/dL (8-24); Bun/Creatinine Ratio 21.3 (12.0-20.0); CO2, Blood 26 mmol/L (21-32); Calcium, Blood 8.3 mg/dL (8.5-10.1); Chloride, Blood 110 mmol/L (98-108); Creatinine, Blood 0.52 mg/dL (0.40-1.00); Glomerular Filtration Rate 106 (60-); Glucose, Blood 104 mg/dL (70-99); Phosphorus, Blood 2.2 mg/dL (2.5-4.9); Potassium, Blood 3.7 mmol/L (3.5-5.5); Sodium, Blood 138 mmol/L (136-145)
[2022-06-25 11:28] LABS: Rheumatoid Factor, Serum Positive (Negative)
[2022-06-25 11:34] LABS: RA, SEMIQUANTITATIVE 1024 IU/ml (<8)
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
[2022-06-26 06:14] LABS: Albumin, Blood 2.2 g/dL (3.4-5.0); Anion Gap 4 mmol/L (6-16); Blood Urea Nitrogen 8 mg/dL (8-24); Bun/Creatinine Ratio 15.1 (12.0-20.0); CO2, Blood 25 mmol/L (21-32); CPK Creatine Kinase 458 U/L (26-193); Calcium, Blood 7.5 mg/dL (8.5-10.1); Chloride, Blood 110 mmol/L (98-108); Creatinine, Blood 0.53 mg/dL (0.40-1.00); Glomerular Filtration Rate 106 (60-); Glucose, Blood 100 mg/dL (70-99); Phosphorus, Blood 2.9 mg/dL (2.5-4.9); Potassium, Blood 3.9 mmol/L (3.5-5.5); Sodium, Blood 139 mmol/L (136-145)
[2022-06-26] MEDS ORDERED: MICO100S VAG (11:42)
--- NOTE | 2022-06-26 12:59 | NUR ---
DISCHARGE HOME PT FRIEND IS DRIVING HER HOME. HE WENT AND GOT HER CLOTHES FOR THE TRIP. HE RETURNED. I V X2 REMOVED FROM BOTH HANDS. DRESSINGS APPLIED. CONTINUE POC.
== END 2022-06-26 13:09 | disposition home or self-care (01) | DRG 92 ==
LOC: ER 09:53 → MEDS 09:54
PROVIDERS: Emergency Medicine; Internal Medicine; Nurse Practitioner Acute Care; ADMIT Internal Medicine
PROC: 009U3ZX Drainage of Spinal Canal, Percutaneous Approach, Diagnostic (ICD-10-PCS; principal; 2022-06-22)
DX: G92.8 Other toxic encephalopathy (principal); M62.82 Rhabdomyolysis; D72.829 Elevated white blood cell count, unspecified; R29.6 Repeated falls; E83.39 Other disorders of phosphorus metabolism; B37.31 Acute candidiasis of vulva and vagina; B00.9 Herpesviral infection, unspecified; F25.9 Schizoaffective disorder, unspecified; F31.9 Bipolar disorder, unspecified; M79.7 Fibromyalgia; M54.9 Dorsalgia, unspecified; M54.2 Cervicalgia; G89.29 Other chronic pain; M77.9 Enthesopathy, unspecified; E16.2 Hypoglycemia, unspecified; E88.81 Metabolic syndrome and other insulin resistance; I10 Essential (primary) hypertension; E78.5 Hyperlipidemia, unspecified; B19.20 Unspecified viral hepatitis C without hepatic coma; F43.10 Post-traumatic stress disorder, unspecified; E86.0 Dehydration; N89.8 Other specified noninflammatory disorders of vagina; W19.XXXA Unspecified fall, initial encounter; Z88.0 Allergy status to penicillin; Z79.899 Other long term (current) drug therapy; Z79.82 Long term (current) use of aspirin; Z79.02 Long term (current) use of antithrombotics/antiplatelets
CPT/HCPCS: 36415; 62270; 70450; 71045; 80053; 80069; 81001; 82140; 82550; 82945; 82947; 83735; 84157; 84443; 85025; 85027; 86430; 86431; 86695; 86696; 87070; 87483; 87491; 87591; 89051; 93005; 93010; 96361; 96372; 96374-59; 96375; 96375-59; 99285-25; A9270; G0378; J1630; J1644; J1790; J2060; J2250; J3010; J7030; J7060; P9612

== ENCOUNTER 2022-10-21 07:01 | Inpatient (IN) | payer MEDICARE ==
[~2022-10-21] VITALS: Ht 167.6 cm; Wt 76.2 kg
[~2022-10-21 07:01] MED LIST changes: +MICO100S VAG
[2022-10-21 07:30] LABS: Source, Urine Clean Catch
[2022-10-21 07:33] LABS: BASOPHILS PERCENT AUTO 1 % (0-2); EOSINOPHILS ABSOLUTE AUTO 0.08 K/mm3 (0.00-0.68); EOSINOPHILS PERCENT AUTO 1 % (0-6); Hematocrit 46.1 % (33.0-51.0); Hemoglobin 14.8 g/dL (11.5-16.0); IMMATURE GRAN ABSOLUTE AUTO 0.22 K/mm3 (0.00-0.10); IMMATURE GRAN PERCENT AUTO 1 % (0-1); LYMPHOCYTES ABSOLUTE AUTO 2.37 K/mm3 (0.84-5.20); LYMPHOCYTES PERCENT AUTO 15 % (21-46); MONOCYTES ABSOLUTE AUTO 0.68 K/mm3 (0.16-1.47); MONOCYTES PERCENT AUTO 4 % (4-13); Mean Corpuscular HGB Conc 32.1 g/dL (31.5-36.5); Mean Corpuscular Volume 97 fL (80-100); Mean Platelet Volume 9.4 fL (9.1-12.4); NEUTROPHILS ABSOLUTE AUTO 12.28 K/mm3 (1.96-9.15); NEUTROPHILS PERCENT AUTO 78 % (41-73); Platelet Count 290 K/mm3 (150-400); RDW Coefficient Variation 14.5 % (11.7-14.2); RDW Standard Deviation 51.6 fL (35.1-46.3); Red Blood Cell Count 4.77 M/mm3 (3.80-5.20); White Blood Cell Count 15.73 K/mm3 (4.00-11.30)
[2022-10-21 07:37] LABS: Appearance, Urine Clear (Clear); Bilirubin, Urine Neg (Neg); Blood, Urine 3+ (Neg); Color, Urine Yellow (P-Yellow); Glucose Qualitative, Urine 2+ (Neg); Ketones, Urine Neg (Neg); Leukocyte Esterase, Urine Neg (Neg); Nitrite, Urine Neg (Neg); Protein, Urine 2+ (Neg); Specific Gravity, Urine 1.015 (1.003-1.022); Urobilinogen, Urine NORM (Normal)
[2022-10-21 07:50] LABS: White Blood Cells, Urine Not Seen /hpf (0-5)
[2022-10-21 07:51] LABS: Bacteria Not Seen /hpf; Red Blood Cells, Urine Not Seen /hpf (0-2); Squamous Epithelial Cells Few /hpf (Few)
[2022-10-21 07:53] LABS: U Amphetamine Screen Not Detected; U Barbituate Screen Not Detected; U Benzodiazapine Screen Not Detected; U Buprenorphine Screen Not Detected; U Cannabinoids Screen DETECTED; U Cocaine Screen Not Detected; U Methadone Screen Not Detected; U Methamphetamine Screen Not Detected; U Opiates Screen Not Detected; U Oxycodone Screen Not Detected; U Phencyclidine Screen Not Detected; U Propoxyphene Screen Not Detected
[2022-10-21 07:56] LABS: CPK Creatine Kinase 239 U/L (26-193); Ethanol (Alcohol), Blood, Med <3 mg/dL
[2022-10-21 08:00] LABS: Alanine Aminotransfer (ALT/SGP 60 U/L (12-78); Albumin, Blood 3.5 g/dL (3.4-5.0); Albumin/Globulin Ratio 0.7 (0.8-1.8); Alk Phos 89 U/L (50-136); Anion Gap 16 mmol/L (6-16); Aspartate Aminotrans (AST/SGOT 54 U/L (12-37); Bilirubin, Total 0.2 mg/dL (0.1-1.0); Blood Urea Nitrogen 14 mg/dL (8-24); Bun/Creatinine Ratio 17.8 (12.0-20.0); CO2, Blood 14 mmol/L (21-32); Calcium, Blood 8.8 mg/dL (8.5-10.1); Chloride, Blood 111 mmol/L (98-108); Creatinine, Blood 0.79 mg/dL (0.40-1.00); Glomerular Filtration Rate 85 (60-); Glucose, Blood 198 mg/dL (70-99); Potassium, Blood 4.1 mmol/L (3.5-5.5); Sodium, Blood 141 mmol/L (136-145); Total Protein, Blood 8.5 g/dL (6.4-8.2)
--- NOTE | 2022-10-21 19:33 | NUR ---
SHIFT SUMMARY/ADMISSION NOTE PT ARRIVED TO MEDICAL FLOOR FROM ED AT APPROX 1600. PT IS AxOx1 (SELF). PT DOES NOT RESPOND TO MOST QUESTIONS. PT'S BEHAVIOR IS ERRATIC WITH FREQUENT BODY THRASHING, PULLING AT TUBES/CORDS, AND IS NON REDIRECTABLE. PT PULLED HER WALKER CATH OUT JUST BEFORE SHE WAS BROUGHT TO THE FLOOR AND PULLED AN IV OUT SHORTLY AFTER ARRIVAL. PT IS IN SHON WRIST RESTRAINTS WITH A 1:1 SITTER FOR SAFETY MONITORING. PT WAS MEDICATED FOR AGITATION. PT IS CURRENTLY LAYING IN BED WITH CALL SITTER IN ROOM. PT IS RESTING ON AND OFF.
[2022-10-22 00:40] VITALS: BP 120/82
[2022-10-22 02:56] VITALS: BP 110/75
--- NOTE | 2022-10-22 05:21 | NUR ---
NOT ABLE TO ASSESS ORIENTATION, LOOKS TO BE ORIENTED TO SELF ONLY. DID STATE SHE FELL AND BROKE HER BACK AT 17, FELL DOWN STAIRS RECENTLY WHERE SHE KNOCKED OUT HER TOOTH, PASSED OUT IN THE SUN WHILE TAKING CLOTHES OFF THE LINE AND THAT SHE WAS IN SOME PAIN (BACK AND R RIB CAGE). PAIN TREATED PER MAR AND HALDOL ADMINISTERED FOR AGGITATION, THRASHING, PULLING ON LINES, TRYING TO GET OOB, AND CHEWING ON R LOWER LIP WITH VERY LITTLE RESULTS. 04/15 SITER CONTINUALLY REMOVING LIP OUT FROM BETWEEN TEETH. PRN ATIVAN ADMINISTERED WITH GOOD RESULTS. VSS, APNEIC PERIODS NOTED BUT DOES NOT TOLERATE ANYTHING ON HER FACE. WILL CONT TO MONITOR.
[2022-10-22 05:46] LABS: BASOPHILS ABSOLUTE AUTO 0.03 K/mm3 (0.00-0.23); BASOPHILS PERCENT AUTO 0 % (0-2); EOSINOPHILS ABSOLUTE AUTO 0.04 K/mm3 (0.00-0.68); EOSINOPHILS PERCENT AUTO 0 % (0-6); Hematocrit 42.7 % (33.0-51.0); Hemoglobin 14.4 g/dL (11.5-16.0); IMMATURE GRAN ABSOLUTE AUTO 0.03 K/mm3 (0.00-0.10); IMMATURE GRAN PERCENT AUTO 0 % (0-1); LYMPHOCYTES ABSOLUTE AUTO 2.08 K/mm3 (0.84-5.20); LYMPHOCYTES PERCENT AUTO 20 % (21-46); MONOCYTES PERCENT AUTO 9 % (4-13); Mean Corpuscular HGB 30.7 pg (26.0-34.0); Mean Corpuscular HGB Conc 33.7 g/dL (31.5-36.5); Mean Platelet Volume 9.8 fL (9.1-12.4); NEUTROPHILS ABSOLUTE AUTO 7.38 K/mm3 (1.96-9.15); NEUTROPHILS PERCENT AUTO 71 % (41-73); Platelet Count 221 K/mm3 (150-400); RDW Coefficient Variation 14.5 % (11.7-14.2); RDW Standard Deviation 48.3 fL (35.1-46.3); Red Blood Cell Count 4.69 M/mm3 (3.80-5.20); White Blood Cell Count 10.46 K/mm3 (4.00-11.30)
[2022-10-22 06:41] LABS: Mean Corpuscular Volume 91 fL (80-100)
[2022-10-22 07:11] VITALS: BP 153/86
[2022-10-22 12:13] LABS: Bun/Creatinine Ratio 20.9 (12.0-20.0); Calcium, Blood 8.7 mg/dL (8.5-10.1); Creatinine, Blood 0.62 mg/dL (0.40-1.00); Potassium, Blood 4.2 mmol/L (3.5-5.5)
--- NOTE | 2022-10-22 17:06 | NUR ---
SHIFT SUMMARY PT AxOx4 WITH OCCASIONAL FORGETFULNESS. PT IS PLEASANT AND COOPERATIVE WITH CARE. PT WAS TAKEN OUT OF RESTRAINTS AT 1100. PT MENTATION HAS CLEARED SIGNIFICANTLY SINCE LAST NIGHT. SHE IS ABLE TO HAVE A CONVERSATION WITH STAFF, ANSWER QUESTIONS ABOUT HER HISTORY AND FOLLOW DIRECTIONS. CURRENT PLAN IS TO OBTAIN AN EEG AND MONITOR FOR ANY MENTATION CHANGES/SEIZURE ACTIVITY. PT VERBALIZES UNDERSTANDING OF PLAN. SHE WAS MEDICATED FOR PAIN x1 AND GIVEN A HEAT PAD WITH REPORTED RELIEF FOR HER CHRONIC NECK AND BACK PAIN. PT IS CURRENTLY RESTING IN BED WITH CALL LIGHT IN REACH. BED ALARM ON FOR PRECAUTION.
[2022-10-22 17:12] VITALS: BP 132/74
[2022-10-22 20:38] VITALS: BP 133/84
--- NOTE | 2022-10-22 21:10 | NUR ---
IGNITION RISK EDUCATION AND ASSESSMENT COMPLETED.
[2022-10-23 05:07] VITALS: BP 133/83
[2022-10-23 06:33] LABS: Bun/Creatinine Ratio 32.2 (12.0-20.0); Creatinine, Blood 0.59 mg/dL (0.40-1.00); Potassium, Blood 3.8 mmol/L (3.5-5.5)
--- NOTE | 2022-10-23 06:44 | NUR ---
SUMMARY: PT A/OX3-4 AND IS MILDLY FORGETFULL AT TIMES W/BED ALARM ON FOR FALL RISK. MENTATION CONT'S TO CLEAR AND SHE REMAINS PLEASANT AND COOPERATIVE W/CARE. NO S/S SEIZURE ACTIVITY AND EEG IS PLANNED FOR TODAY. SHE'S UP W/SBA D/T SLIGHTLY UNSTEADY GAIT. PT RECIEVED TYLENOL PRN FOR CHRONIC NECK AND L.SHOULDER PAIN AND PT ENJOYS KPAD IN PLACE FOR INCREASED RELIEF. SHE'S NSR ON TELEMETRY AT 70'S-80'S BPM. NO ACUTE CHANGES, VSS/AFEBRILE. WCTM AND REPORT TO DAY RN.
[2022-10-23 07:12] VITALS: BP 140/79
[2022-10-23 15:54] VITALS: BP 137/94
--- NOTE | 2022-10-23 17:09 | NUR ---
DC- PT LEFT IN STABLE CONDITION W/SIGNIFICANT OTHER WITH ALL BELONGINGS. RN ENSURED FIRE SAFETY AT ALL HOURLY ROUNDS.
== END 2022-10-23 16:26 | disposition home or self-care (01) | DRG 92 ==
LOC: ER 07:01 → MEDS 07:02
PROVIDERS: Emergency Medicine; ADMIT Internal Medicine
DX: G92.8 Other toxic encephalopathy (principal); E87.20 Acidosis, unspecified; F10.239 Alcohol dependence with withdrawal, unspecified; S09.90XA Unspecified injury of head, initial encounter; S01.511A Laceration without foreign body of lip, initial encounter; M79.7 Fibromyalgia; M54.9 Dorsalgia, unspecified; G89.4 Chronic pain syndrome; M54.2 Cervicalgia; R74.8 Abnormal levels of other serum enzymes; G40.909 Epilepsy, unspecified, not intractable, without status epilepticus; D72.828 Other elevated white blood cell count; E16.2 Hypoglycemia, unspecified; F25.9 Schizoaffective disorder, unspecified; F31.9 Bipolar disorder, unspecified; I10 Essential (primary) hypertension; E78.5 Hyperlipidemia, unspecified; F43.10 Post-traumatic stress disorder, unspecified; W01.0XXA Fall on same level from slipping, tripping and stumbling without subsequent striking against object, initial encounter; M71.9 Bursopathy, unspecified; Z88.0 Allergy status to penicillin; Z79.899 Other long term (current) drug therapy; Z86.19 Personal history of other infectious and parasitic diseases
CPT/HCPCS: 36415; 51702; 70450; 71045; 80048; 80053; 81001; 82140; 82550; 84145; 84146; 84443; 85025; 93005; 93010; 96372; 96374-59; 96375; 96376; 99285-25; A9270; G0378; G0480; J1630; J1650; J1885; J2060; J2250